=== PATIENT | female | born 1975 | race Asian ===

== ENCOUNTER 2017-10-28 14:09 | Emergency (ER) | payer OTHER, BC ==
[2017-10-28 14:24] VITALS: BP 101/53
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
== END 2017-10-28 15:25 | disposition home or self-care (01) ==
LOC: ER 14:09
DX: S16.1XXA Strain of muscle, fascia and tendon at neck level, initial encounter (principal); V49.40XA Driver injured in collision with unspecified motor vehicles in traffic accident, initial encounter
CPT/HCPCS: 99283